=== PATIENT | female | born 1935 | race Hispanic/Latino ===

== ENCOUNTER → 2022-02-11 | Emergency (ER) | payer MEDICARE ==
[~2022-02-11] VITALS: Ht 142.2 cm; Wt 51.3 kg
[~2022-02-11] MED LIST: HYDROCODONE/ACETAMINOPHEN 5/325 MG TAB PO SCH; IBUP-1493 PO; MORPHINE 2 MG SYG IVP SCH
[2022-02-11 19:46] VITALS: BP 159/65
== END | disposition home or self-care (01) ==
LOC: EDH 18:00 → EDBD 18:00
DX: S82.61XA Displaced fracture of lateral malleolus of right fibula, initial encounter for closed fracture (principal); E78.00 Pure hypercholesterolemia, unspecified; I10 Essential (primary) hypertension; Z98.890 Other specified postprocedural states; W19.XXXA Unspecified fall, initial encounter; Y93.89 Activity, other specified; Y92.89 Other specified places as the place of occurrence of the external cause; Y99.8 Other external cause status
CPT/HCPCS: 29515; 73562; 73590; 73610